=== PATIENT | male | born 1960 | race Caucasian/White ===

== ENCOUNTER 2023-02-16 12:06 | Inpatient (IN) | payer MEDICARE, MEDICAID ==
[~2023-02-16] VITALS: Ht 177.8 cm; Wt 81.9 kg
[2023-02-16 14:55] LABS: Basophils # (auto) 0 10 ^3/uL (0-0.2); Basophils % (auto) 0.6 % (0.0-2.0); Eosinophils # (auto) 0.3 10 ^3/uL (0-0.8); Eosinophils % (auto) 4.5 % (0.0-7.0); Hematocrit 40.1 % (41.0-53.0); Hemoglobin 13.3 g/dL (13.5-17.5); Lymphocytes % (auto) 17.5 % (10.0-50.0); Mean Corpuscular Hemoglobin 29.1 pg (28.0-32.0); Mean Corpuscular Hgb Conc. 33.2 g/dL (32.0-36.0); Mean Corpuscular Volume 87.7 fL (80.0-100.0); Monocytes # (auto) 0.3 10 ^3/uL (0-1.3); Neutrophils % (auto) 71.4 % (37.0-80.0); Nucleated Red Blood Cells % 0.1 %; Red Blood Cells 4.58 10^6/uL (4.5-5.90); Red Cell Distribution Width 15.7 % (11.8-14.3); White Blood Cell 5.6 10^3/uL (4.4-10.8)
[2023-02-16 15:41] LABS: Albumin 3.7 g/dL (3.4-5.0); BUN/Creatinine Ratio 17.6 (10.0-20.0); Bilirubin, Total 0.3 mg/dL (0.2-1.0); Calcium 9.5 mg/dL (8.5-10.1); Total Protein 6.9 g/dL (6.4-8.2)
[2023-02-16] MEDS ORDERED: NEOMYCIN-POLYMY-DEXAMETH 0.1% OPTH(EYE) OINT 3.5GM EACHEYE ONE (16:15)
[2023-02-16] MEDS ORDERED: SODIUM CHLORIDE 0.9% 1,000 ML IV SCH (17:30)
[2023-02-16] MEDS ORDERED: NITROGLYCERIN 0.4 MG SL TAB SL PRN (17:30)
[2023-02-16] MEDS ORDERED: MORPHINE SULFATE INJ 2 MG/ml SYRG IV PRN (17:30)
[2023-02-16 18:23] LABS: Alcohol, Urine < 3.0 mg/dL (0-10); Amphetamine Screen, Urine NEGATIVE (NEGATIVE); Barbiturate Scree,Urine NEGATIVE (NEGATIVE); Benzodiazephine Screen, Urine NEGATIVE (NEGATIVE); Cannabinoid Screen, Urine NEGATIVE (NEGATIVE); Cocaine Screen, Urine NEGATIVE (NEGATIVE); Opiate Scree,Urine NEGATIVE (NEGATIVE); Phencyclidine Screen, Urine NEGATIVE (NEGATIVE)
[2023-02-16] MEDS: SODIUM CHLORIDE 0.9% 1,000 ML IV SCH (18:30)
[2023-02-16 18:55] LABS: Urine Bacteria NONE SEEN /hpf (None Seen); Urine Blood Negative /uL (Negative); Urine Mucus FEW (None Seen); Urine Specific Gravity 1.021 (1.001-1.035); Urine WBC 8 /hpf (0 - 3)
[2023-02-16 19:26] LABS: Cholesterol 142 mg/dL (< 200); HDL Cholesterol 61 mg/dL (40-59); LDL Cholesterol 71 mg/dL (< 100); Triglycerides 65 mg/dL (< 150)
[2023-02-16] MEDS: CIPROFLOXACIN 0.3%OPTH(EYE) SOL 5ML EACHEYE SCH ×3 (21:49→21:52)
[2023-02-17] MEDS: CIPROFLOXACIN 0.3%OPTH(EYE) SOL 5ML EACHEYE SCH ×12 (02:00→22:00)
[2023-02-17] MEDS: SODIUM CHLORIDE 0.9% 1,000 ML IV SCH ×2 (04:30→14:35)
[2023-02-17] MEDS ORDERED: LORazepam 2MG/ML-1ML VIAL IV PRN (09:45)
[2023-02-17] MEDS: ENOXAPARIN SOD 40 MG/0.4 ML SYRINGE SC SCH (10:00)
[2023-02-17 12:01] LABS: Basophils # (auto) 0 10 ^3/uL (0-0.2); Basophils % (auto) 0.5 % (0.0-2.0); Eosinophils # (auto) 0.2 10 ^3/uL (0-0.8); Eosinophils % (auto) 3.5 % (0.0-7.0); Hematocrit 39.7 % (41.0-53.0); Hemoglobin 12.9 g/dL (13.5-17.5); Lymphocytes # (auto) 1.2 10 ^3/uL (0.4-5.4); Lymphocytes % (auto) 20.8 % (10.0-50.0); Mean Corpuscular Hemoglobin 28.8 pg (28.0-32.0); Mean Corpuscular Hgb Conc. 32.4 g/dL (32.0-36.0); Monocytes # (auto) 0.5 10 ^3/uL (0-1.3); Monocytes % (auto) 7.9 % (0.0-12.0); Neutrophils # (auto) 3.9 10 ^3/uL (1.6-8.6); Neutrophils % (auto) 67.3 % (37.0-80.0); Nucleated Red Blood Cells % 0.1 %; Red Blood Cells 4.46 10^6/uL (4.5-5.90); Red Cell Distribution Width 15.4 % (11.8-14.3); White Blood Cell 5.8 10^3/uL (4.4-10.8)
[2023-02-17 12:15] LABS: Potassium 4.4 mmol/L (3.5-5.1)
[2023-02-17 12:24] LABS: Albumin 2.9 g/dL (3.4-5.0); BUN/Creatinine Ratio 20.3 (10.0-20.0); Bilirubin, Total 0.2 mg/dL (0.2-1.0); Calcium 8.9 mg/dL (8.5-10.1); Total Protein 6.6 g/dL (6.4-8.2)
[2023-02-17] MEDS: levETIRAcetam 500 MG TAB PO SCH ×2 (12:55→22:00)
[2023-02-17] MEDS: risperiDONE 1 MG TAB PO SCH (12:55)
[2023-02-17 12:59] LABS: Folate (Folic Acid) 13.79 ng/mL (5.38-24)
[2023-02-17] MEDS: TAMSULOSIN HYDROCHLORIDE 0.4 MG CAP PO SCH (18:43)
[2023-02-17 22:39] VITALS: BP 136/74
[2023-02-18] VITALS (7 sets, daily range): BP systolic 119–144; BP diastolic 56–88
[2023-02-18] MEDS: SODIUM CHLORIDE 0.9% 1,000 ML IV SCH ×3 (00:30→20:30)
[2023-02-18] MEDS: CIPROFLOXACIN 0.3%OPTH(EYE) SOL 5ML EACHEYE SCH ×12 (02:00→22:00)
[2023-02-18] MEDS: LEVOTHYROXINE SODIUM 100 MCG TAB PO SCH (05:39)
[2023-02-18] MEDS ORDERED: cefTRIAXone 1GM/50ML D5W 50 ML IV SCH (09:00)
[2023-02-18] MEDS: cefTRIAXone 1GM/50ML D5W 50 ML IV SCH (09:10)
[2023-02-18] MEDS: ENOXAPARIN SOD 40 MG/0.4 ML SYRINGE SC SCH (09:45)
[2023-02-18] MEDS: risperiDONE 1 MG TAB PO SCH (09:46)
[2023-02-18] MEDS: levETIRAcetam 500 MG TAB PO SCH ×2 (09:46→22:06)
[2023-02-18] MEDS: TAMSULOSIN HYDROCHLORIDE 0.4 MG CAP PO SCH (17:57)
[2023-02-19 05:00] VITALS: BP 105/65
[2023-02-19 09:00] VITALS: BP 114/82
[2023-02-19] MEDS: cefTRIAXone 1GM/50ML D5W 50 ML IV SCH (09:00)
[2023-02-19] MEDS: CIPROFLOXACIN 0.3%OPTH(EYE) SOL 5ML EACHEYE SCH ×8 (10:43→21:38)
[2023-02-19] MEDS: ENOXAPARIN SOD 40 MG/0.4 ML SYRINGE SC SCH (10:44)
[2023-02-19] MEDS: risperiDONE 1 MG TAB PO SCH (10:44)
[2023-02-19] MEDS: SODIUM CHLORIDE 0.9% 1,000 ML IV SCH (10:44)
[2023-02-19] MEDS: levETIRAcetam 500 MG TAB PO SCH ×2 (10:44→21:37)
[2023-02-19] MEDS: LEVOTHYROXINE SODIUM 100 MCG TAB PO SCH (10:44)
[2023-02-19] MEDS ORDERED: CYANOCOBALAMIN (B-12) 1000 MCG/1 ML VIAL IM ONE (10:45)
[2023-02-19 13:00] VITALS: BP 171/79
[2023-02-19 16:58] VITALS: BP 125/85
[2023-02-19] MEDS: TAMSULOSIN HYDROCHLORIDE 0.4 MG CAP PO SCH (17:45)
[2023-02-19 22:00] VITALS: BP 108/70
[2023-02-20] MEDS: CIPROFLOXACIN 0.3%OPTH(EYE) SOL 5ML EACHEYE SCH ×12 (02:09→21:39)
[2023-02-20 05:00] VITALS: BP 127/86
[2023-02-20] MEDS: LEVOTHYROXINE SODIUM 100 MCG TAB PO SCH (05:37)
[2023-02-20 09:00] VITALS: BP 143/86
[2023-02-20] MEDS: cefTRIAXone 1GM/50ML D5W 50 ML IV SCH (09:00)
[2023-02-20] MEDS: ENOXAPARIN SOD 40 MG/0.4 ML SYRINGE SC SCH (10:28)
[2023-02-20] MEDS: levETIRAcetam 500 MG TAB PO SCH ×2 (10:28→21:37)
[2023-02-20] MEDS: risperiDONE 1 MG TAB PO SCH (10:28)
[2023-02-20] MEDS: CYANOCOBALAMIN (B-12) 1000 MCG/1 ML VIAL IM SCH (10:28)
[2023-02-20 17:00] VITALS: BP 114/81
[2023-02-20] MEDS: TAMSULOSIN HYDROCHLORIDE 0.4 MG CAP PO SCH (17:57)
[2023-02-20 22:00] VITALS: BP 100/71
[2023-02-21] MEDS: CIPROFLOXACIN 0.3%OPTH(EYE) SOL 5ML EACHEYE SCH ×9 (02:00→17:47)
[2023-02-21 05:00] VITALS: BP 107/75
[2023-02-21] MEDS: LEVOTHYROXINE SODIUM 100 MCG TAB PO SCH (05:57)
[2023-02-21 08:00] VITALS: BP 100/72
[2023-02-21] MEDS: cefTRIAXone 1GM/50ML D5W 50 ML IV SCH (09:00)
[2023-02-21] MEDS: ENOXAPARIN SOD 40 MG/0.4 ML SYRINGE SC SCH (09:15)
[2023-02-21] MEDS: levETIRAcetam 500 MG TAB PO SCH (09:15)
[2023-02-21] MEDS: CYANOCOBALAMIN (B-12) 1000 MCG/1 ML VIAL IM SCH (09:16)
[2023-02-21] MEDS: risperiDONE 1 MG TAB PO SCH (09:17)
[2023-02-21] MEDS ORDERED: CYANOCOBALAMIN (B-12) 1000 MCG/1 ML VIAL IM ONE (10:45)
[2023-02-21 12:00] VITALS: BP 110/67
[2023-02-21 16:00] VITALS: BP 106/74
[2023-02-21 16:08] VITALS: BP 110/67
== END 2023-02-21 17:46 | DRG 71 ==
LOC: EDBD 12:06 → ER 12:06 → TELE 17:36 → TELE-CENTR 02-17 23:13 → CENTRAL 02-18 13:41
PROVIDERS: ADMIT Registered Nurse; ATTEND Internal Medicine
DX: G93.41 Metabolic encephalopathy (principal); G91.2 (Idiopathic) normal pressure hydrocephalus; N39.0 Urinary tract infection, site not specified; G30.9 Alzheimer's disease, unspecified; H10.33 Unspecified acute conjunctivitis, bilateral; F02.80 Dementia in other diseases classified elsewhere, unspecified severity, without behavioral disturbance, psychotic disturbance, mood disturbance, and anxiety; I10 Essential (primary) hypertension; R62.7 Adult failure to thrive; E78.5 Hyperlipidemia, unspecified; N40.0 Benign prostatic hyperplasia without lower urinary tract symptoms; E03.9 Hypothyroidism, unspecified; F32.A Depression, unspecified; G40.909 Epilepsy, unspecified, not intractable, without status epilepticus; Z88.2 Allergy status to sulfonamides; Z88.5 Allergy status to narcotic agent; Z68.25 Body mass index [BMI] 25.0-25.9, adult
CPT/HCPCS: 36415; 70450; 70551; 80053; 80061; 80307; 81001; 82140; 82607; 82746; 83036; 83605; 84443; 84484; 85025; 87040; 87077; 87186; 93306; 93886; 96372; 97110; 97116; 97163; 97530; G0378; J0696